=== PATIENT | female | born 1940 | race Caucasian/White ===

== ENCOUNTER 2018-03-31 11:25 | Emergency (ER) | payer MEDICARE ==
[2018-03-31 12:05] VITALS: BP 127/65
--- NOTE | 2018-03-31 12:15 | UC ---
Throat Pain/Nasal Satnam HPI - HPI Summary HPI Summary: Patient has has increasing sinus congestion over the last 2 weeks. denies fever , has eye and ear pressure. - History of Current Complaint Chief Complaint: UCGeneralIllness Stated Complaint: STUFFY EARS,ST,SINUS CONGESTION Time Seen by Provider: 03/31/18 12:09 Hx Obtained From: Patient ?: No Onset/Duration: Sudden Onset, Lasting Weeks Severity: Severe Pain Intensity: 8 Associated Signs & Symptoms: Positive: Sinus Discomfort, Nasal Discharge - Allergies/Home Medications Allergies/Adverse Reactions: Allergies Allergy/AdvReac Type Severity Reaction Status Date / Time No Known Allergies Allergy Verified 03/31/18 12:05 Home Medications: Home Medications Atorvastatin* [Lipitor*] 10 mg PO 1700 03/31/18 [History Confirmed 03/31/18] Benazepril HCl 40 mg PO 03/31/18 [History] Metoprolol Tartrate [Lopressor] 50 mg PO 03/31/18 [History] amLODIPine TAB* [Norvasc 5 mg TAB*] 5 mg PO DAILY 03/31/18 [History Confirmed ] PMH/Surg Hx/FS Hx/Imm Hx Previously Healthy: Yes Cardiovascular History: Hypertension - Surgical History Surgical History: None - Family History Known Family History: Positive: Hypertension - Social History Alcohol Use: None Substance Use Type: None Smoking Status (MU): Former Smoker Review of Systems All Other Systems Reviewed And Are Negative: Yes Constitutional: Positive: Fatigue Skin: Positive: Negative Eyes: Positive: Negative ENT: Positive: Ear Ache, Nasal Discharge, Sinus Congestion Respiratory: Positive: Cough Cardiovascular: Positive: Negative Gastrointestinal: Positive: Negative Genitourinary: Positive: Negative Motor: Positive: Negative Neurovascular: Positive: Negative Musculoskeletal: Positive: Negative Neurological: Positive: Negative Psychological: Positive: Negative Is Patient Immunocompromised?: No Physical Exam Triage Information Reviewed: Yes Appearance: Well-Nourished, Ill-Appearing, Pain Distress Vital Signs: Initial Vital Signs Temp 98.5 F 03/31/18 12:01 Pulse 62 03/31/18 12:01 Resp 16 03/31/18 12:01 BP 127/65 03/31/18 12:01 Pulse Ox 98 03/31/18 12:01 Vital Signs Reviewed: Yes Eye Exam: Normal ENT: Positive: Pharyngeal erythema, Nasal congestion, Other - bilateral cerumen impaction Dental Exam: Normal Neck exam: Normal Neck: Positive: Supple, Nontender, No Lymphadenopathy Respiratory Exam: Normal Respiratory: Positive: Chest non-tender, Lungs clear, Normal breath sounds Cardiovascular Exam: Normal Cardiovascular: Positive: RRR, No Murmur, Pulses Normal Abdominal Exam: Normal Abdomen Description: Positive: Nontender, No Organomegaly, Soft Bowel Sounds: Positive: Present Musculoskeletal Exam: Normal Neurological Exam: Normal Psychological Exam: Normal Skin Exam: Normal Throat Pain/Nasal Course/Dx - Course Course Of Treatment: hx obtained, exam performed, meds reviewed, ears irrigated , treated for sinusitis - Differential Dx/Diagnosis Differential Diagnosis/HQI/PQRI: Laryngitis, Otitis Media, Pharyngitis, Sinusitis, URI Provider Diagnosis: Bilateral impacted cerumen, Sinusitis Discharge - Sign-Out/Discharge Documenting (check all that apply): Patient Departure All imaging exams completed and their final reports reviewed: No Studies - Discharge Plan Condition: Stable Disposition: HOME Prescriptions: Azithromyxin IVELISSE (NF) [Z-Ivelisse (Zithromax) 250 mg tabs #6] 2 tab PO .TODAY, THEN 1 DAILY #6 tab Fluticasone NASAL SPRAY 50MCG* [Flonase NASAL SPRAY 50MCG*] 2 spray BOTH NARES DAILY #1 btl Patient Education Materials: Rhinosinusitis (ED), Cerumen Impaction (ED) Referrals: Stella Abraham PA [Primary Care Provider] - Additional Instructions: 1. take the medication as prescribed. Use the nasal spray for at least 2 weeks. 2. Increase fluid intake, warm compresses to the sinuses can be beneficial. 3. Follow up - Billing Disposition and Condition Condition: STABLE Disposition: Home
== END 2018-03-31 12:57 | disposition home or self-care (01) ==
LOC: UCCORT 11:25
DX: H61.23 Impacted cerumen, bilateral (principal); J32.9 Chronic sinusitis, unspecified; I10 Essential (primary) hypertension; Z87.891 Personal history of nicotine dependence
CPT/HCPCS: 99202; G0463